=== PATIENT | female | born 1965 | race Caucasian/White ===

== ENCOUNTER 2021-05-31 18:02 | Emergency (ER) | payer BC, OTHER ==
--- NOTE | 2021-05-31 18:59 | EDM.PDOC ---
ED HPI GENERAL MEDICAL PROBLEM - General Chief Complaint: Respiratory Problem Stated Complaint: HEADACHE, COUGH, LOSS OF SMELL Time Seen by Provider: 05/31/21 18:59 Source of Information: Reports: Patient, RN Notes Reviewed History Limitations: Reports: No Limitations - History of Present Illness INITIAL COMMENTS - FREE TEXT/NARRATIVE: Brisa presents with complaints of + home COVID test. She reports she feels tired, SOB with activity and like she does not want to do anything. She denies difficulty breathing, fever, chills, nausea, vomiting, change in bowel/bladder or other concerns. Date of symptom onset 05/23/2021. Use of OTC no significant help with symptoms. 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 Denies: Fever, Chills, Weakness, Fatigue, Night Sweats, Diaphoresis, Weight Loss HEENT: Reports: No Symptoms Respiratory: Reports: Shortness of Breath (with activity -oxgen saturation 96% on room air), Cough. Denies: Wheezing, Pleuritic Chest Pain, Sputum, Hemoptysis Cardiovascular: Reports: Dyspnea on Exertion. Denies: Chest Pain, Blood Pressure Problem, Claudication, Edema, Lightheadedness, Orthopnea, Palpitations, PND, Syncope Endocrine: Reports: No Symptoms GI/Abdominal: Reports: No Symptoms : Reports: No Symptoms Musculoskeletal: Reports: Muscle Pain (generalized body aches and pain. ) Skin: Reports: No Symptoms Neurological: Reports: No Symptoms Psychiatric: Reports: No Symptoms Hematologic/Lymphatic: Reports: No Symptoms Immunologic: Reports: No Symptoms ED EXAM, GENERAL - Physical Exam Exam: See Below Exam Limited By: No Limitations General Appearance: Alert, WD/WN, No Apparent Distress Eye Exam: Bilateral Eye: Normal Inspection, PERRL Ears: Normal External Exam, Normal Canal, Hearing Grossly Normal, Normal TMs Nose: Normal Inspection, Normal Mucosa, No Blood Throat/Mouth: Normal Inspection, Normal Lips, Normal Teeth, Normal Gums, Normal Oropharynx, Normal Voice, No Airway Compromise Head: Atraumatic, Normocephalic Neck: Normal Inspection, Supple, Non-Tender, Full Range of Motion. No: Lymphadenopathy (R), Lymphadenopathy (L) Respiratory/Chest: No Respiratory Distress, Lungs Clear, Normal Breath Sounds, No Accessory Muscle Use, Chest Non-Tender. No: Crackles, Rales, Rhonchi, Wheezing, Stridor, Accessory Muscle Use, Retractions, Splinting Cardiovascular: Normal Peripheral Pulses, Regular Rate, Rhythm, No Edema, No Gallop, No Murmur, No Rub Peripheral Pulses: 4+: Radial (L), Radial (R) Back Exam: Normal Inspection, Full Range of Motion. No: CVA Tenderness (R), CVA Tenderness (L) Extremities: Normal Inspection, Normal Range of Motion, Non-Tender, No Pedal Edema, Normal Capillary Refill Neurological: Alert, Oriented, CN II-XII Intact, Normal Cognition, Normal Gait, No Motor/Sensory Deficits Psychiatric: Normal Affect, Normal Mood Skin Exam: Warm, Dry, Intact, Normal Color, No Rash Lymphatic: No Adenopathy Course - Vital Signs Last Recorded V/S: Last Vital Signs Temp 37 C 05/31/21 18:49 Pulse 80 05/31/21 18:49 Resp 18 05/31/21 18:49 BP 118/73 05/31/21 18:49 Pulse Ox 95 05/31/21 18:49 Departure - Departure Time of Disposition: 19:15 Disposition: Home, Self-Care 01 Condition: Good Clinical Impression: COVID-19 - Discharge Information *PRESCRIPTION DRUG MONITORING PROGRAM REVIEWED*: Not Applicable *COPY OF PRESCRIPTION DRUG MONITORING REPORT IN PATIENT JOSE: Not Applicable Instructions: 10 Things You Can Do to Manage Your COVID-19 Symptoms at Home - [facility] (02/07/2021), COVID-19: Quarantine vs. Isolation - [facility] (07/11/2020), COVID- 19: What to Do If You Are Sick- [facility] (10/09/2020) Referrals: PCP,None [Primary Care Provider] - Forms: ED Department Discharge Additional Instructions: + COVID Vital signs stable Quarantine for 14 days total per CDC recommendations. You can take acetaminophen and ibuprofen for pain/fever as needed. Try to eat protein to help your body and improve strength. Drink water/gatorade per your normal. Walk frequently when awake. Sleep on your stomach or on your side to help with your breathing if you are feeling short of breath. You can have a family member obtain a pulse oximeter to monitor your oxygen level. If your oxygen level is below 90% on a consistent basis then you should return to the emergency room. Take your routine medications as directed. Telephone your primary provider on Wednesday and ask about monoclonal antibody IV and see if you qualify. Return to emergency room as needed. Sepsis Event Note (ED) - Evaluation Sepsis Screening Result: No Definite Risk - Focused Exam Vital Signs: Vital Signs Temp Pulse Resp BP Pulse Ox 05/31/21 18:49 37 C 80 18 118/73 95 05/31/21 18:41 37 C 80 18 118/73 95 - Assessment/Plan Assessment:: COVID-19 Plan: + COVID Vital signs stable Quarantine for 14 days total per CDC recommendations. Take acetaminophen and ibuprofen for pain/fever as needed. Try to eat protein to help body and improve strength. Drink water/gatorade per normal. Walk frequently when awake. Sleep on stomach or on side to help with breathing if feeling short of breath. Have a family member obtain a pulse oximeter to monitor oxygen level. If oxygen level is below 90% on a consistent basis then you should return to the emergency room. Take routine medications as directed. Telephone primary provider on Wednesday and ask about monoclonal antibody IV and see if you qualify. Return to emergency room as needed.
== END 2021-05-31 19:40 | disposition home or self-care (01) ==
LOC: JP.ED 18:02
DX: U07.1 COVID-19 (principal); I10 Essential (primary) hypertension
CPT/HCPCS: 99283